=== PATIENT | female | born 1950 | race Caucasian/White ===

== ENCOUNTER → 2019-10-18 | Outpatient (CLI) | payer OTHER | END | disposition home or self-care (01) | LOC: LAB SRC 10:00 → LAB SHORT 10:00 | DX: E11.42 Type 2 diabetes mellitus with diabetic polyneuropathy (principal) | CPT/HCPCS: 82043 ==

== ENCOUNTER 2022-06-08 10:28 | Observation (INO) | payer OTHER ==
[~2022-06-08] VITALS: Ht 167.6 cm; Wt 108.5 kg
[2022-06-08 11:04] LABS: BASOPHILS ABSOLUTE AUTO 0.13 K/mm3 (0.00-0.23); BASOPHILS PERCENT AUTO 1 % (0-2); EOSINOPHILS ABSOLUTE AUTO 0.06 K/mm3 (0.00-0.68); EOSINOPHILS PERCENT AUTO 0 % (0-6); Hematocrit 45.5 % (33.0-51.0); Hemoglobin 14.8 g/dL (11.5-16.0); IMMATURE GRAN PERCENT AUTO 1 % (0-1); LYMPHOCYTES PERCENT AUTO 11 % (21-46); MONOCYTES ABSOLUTE AUTO 0.83 K/mm3 (0.16-1.47); MONOCYTES PERCENT AUTO 5 % (4-13); Mean Corpuscular HGB 29.6 pg (26.0-34.0); Mean Corpuscular HGB Conc 32.5 g/dL (31.5-36.5); Mean Corpuscular Volume 91 fL (80-100); Mean Platelet Volume 11.1 fL (9.1-12.4); NEUTROPHILS ABSOLUTE AUTO 14.16 K/mm3 (1.96-9.15); NEUTROPHILS PERCENT AUTO 82 % (41-73); Platelet Count 300 K/mm3 (150-400); RDW Coefficient Variation 13.9 % (11.7-14.2); RDW Standard Deviation 46.5 fL (35.1-46.3); White Blood Cell Count 17.18 K/mm3 (4.00-11.30)
[2022-06-08 11:21] LABS: Albumin, Blood 3.2 g/dL (3.4-5.0); Albumin/Globulin Ratio 0.7 (0.8-1.8); Bilirubin, Total 0.3 mg/dL (0.1-1.0); Bun/Creatinine Ratio 28.5 (12.0-20.0); Calcium, Blood 10.8 mg/dL (8.5-10.1); Creatinine, Blood 1.23 mg/dL (0.40-1.00); Globulin, Blood 4.6 g/dL (2.2-4.0); Potassium, Blood 4.3 mmol/L (3.5-5.5); Total Protein, Blood 7.8 g/dL (6.4-8.2)
[2022-06-08 16:28] LABS: Influenza A, PCR NEGATIVE (NEGATIVE); Influenza B, PCR NEGATIVE (NEGATIVE); Resp Syncytial Virus, PCR NEGATIVE (NEGATIVE); SARS-Cov-2 (COVID-19) PCR, MMC NEGATIVE (NEGATIVE)
[2022-06-08 17:14] LABS: CHOL/HDL RATIO 5.3; Cholesterol 159 mg/dL (50-200); HDL Cholesterol 30 mg/dL (>39); LDL/HDL RATIO 2.8; Low Density Lipoprotein Chol 83 mg/dL (0-110); Triglycerides 228 mg/dL (30-160); Very Low Density Lipoprot Chol 45 mg/dL (6-32)
--- NOTE | 2022-06-08 19:04 | NUR ---
SHIFT SUMMARY PT ARRIVED ON THE FLOOR FROM ED AT 1714. PT WAS ABLE TO WALK WITH FWW FROM [facility] TO [facility] BED. A&O X4. PT HAS HAD NO C/O OF CHEST PAIN SINCE COMING TO FLOOR. PT STATES THE NEED TO URINATE FREQUENTLY. PT IS ON TELE AND HAS BEEN RUNNING SLIGHTLY TACHY IN ED AND ON THE MEDICAL FLOOR. PT HAS BILATERAL WEAKNESS IN LOWER EXTREMITES. PT IS TO HAVE STRESS TEST TOMORROW AND NEEDS TO BE NPO 4 HOURS PRIOR. REPORT GIVEN TO ONCOMING NURSE.
[2022-06-09] MEDS ORDERED: AMLODIPINE BESYL5 MG PO (00:28)
[2022-06-09] MEDS ORDERED: METFORMIN HCL500 M2 PO (00:34)
[2022-06-09] MEDS ORDERED: METOPROLOL TART50 M9 PO (00:34)
[2022-06-09] MEDS ORDERED: BASAGLAR K100 UNIT/3 SC (00:35)
[2022-06-09 04:42] LABS: BASOPHILS ABSOLUTE AUTO 0.08 K/mm3 (0.00-0.23); BASOPHILS PERCENT AUTO 1 % (0-2); EOSINOPHILS ABSOLUTE AUTO 0.08 K/mm3 (0.00-0.68); EOSINOPHILS PERCENT AUTO 1 % (0-6); Hemoglobin 12.6 g/dL (11.5-16.0); IMMATURE GRAN PERCENT AUTO 1 % (0-1); LYMPHOCYTES ABSOLUTE AUTO 1.77 K/mm3 (0.84-5.20); LYMPHOCYTES PERCENT AUTO 12 % (21-46); MONOCYTES ABSOLUTE AUTO 1.51 K/mm3 (0.16-1.47); MONOCYTES PERCENT AUTO 10 % (4-13); Mean Corpuscular HGB 29.4 pg (26.0-34.0); Mean Corpuscular HGB Conc 32.3 g/dL (31.5-36.5); Mean Corpuscular Volume 91 fL (80-100); Mean Platelet Volume 11.4 fL (9.1-12.4); NEUTROPHILS ABSOLUTE AUTO 11.61 K/mm3 (1.96-9.15); NEUTROPHILS PERCENT AUTO 77 % (41-73); Platelet Count 195 K/mm3 (150-400); RDW Coefficient Variation 14.5 % (11.7-14.2); RDW Standard Deviation 48.1 fL (35.1-46.3); Red Blood Cell Count 4.28 M/mm3 (3.80-5.20); White Blood Cell Count 15.15 K/mm3 (4.00-11.30)
[2022-06-09 05:15] LABS: Bun/Creatinine Ratio 33.3 (12.0-20.0); Calcium, Blood 10.8 mg/dL (8.5-10.1); Creatinine, Blood 1.47 mg/dL (0.40-1.00); Potassium, Blood 4.5 mmol/L (3.5-5.5)
--- NOTE | 2022-06-09 06:13 | NUR ---
Rn summar: Patient is alert and oriented. She is a one assist to the BR with a walker and SBA. Pt has had no c/o chest pain or SOB. Tele shows SR rate 90's. Plan is for stress test this am. Call light in reach.
[2022-06-09] MEDS ORDERED: ALBU90OI INH (14:47)
[2022-06-09] MEDS ORDERED: TIZANIDINE HCL2 M1 PO (15:31)
--- NOTE | 2022-06-09 18:09 | NUR ---
SHIFT SUMMARY PT IS A&O X4 AND PLEASANT. PT COMPLETED FIRST HALF OF HER NUCLEAR STRESS TEST THIS AM AND WILL COMPLETE THE SECOND HALF TOMORROW AT 0730. PT IS A STANDBY ASSIST WITH FWW. PT APPEARS TO GASP FOR BREATH, PLACED PT ON 2L NC. PT STATED THAT SHE IS NOT A PEOPLE PERSON AND WAS BOTHERED BY TOO MANY PEOPLE COMING IN AND OUT OF HER ROOM TODAY. A NOTE WAS PLACED ON DOOR TO ALLOW HER TO REST FOR A COUPLE HOURS. PT C/O NAUSEA AROUND 1700 AND ZOFRAN WAS GIVEN WITH RELIEF OF SYMPTOMS.
[2022-06-10 04:35] LABS: BASOPHILS ABSOLUTE AUTO 0.06 K/mm3 (0.00-0.23); BASOPHILS PERCENT AUTO 1 % (0-2); EOSINOPHILS ABSOLUTE AUTO 0.17 K/mm3 (0.00-0.68); EOSINOPHILS PERCENT AUTO 2 % (0-6); Hematocrit 37.8 % (33.0-51.0); Hemoglobin 12.2 g/dL (11.5-16.0); IMMATURE GRAN ABSOLUTE AUTO 0.14 K/mm3 (0.00-0.10); IMMATURE GRAN PERCENT AUTO 1 % (0-1); LYMPHOCYTES ABSOLUTE AUTO 1.48 K/mm3 (0.84-5.20); LYMPHOCYTES PERCENT AUTO 13 % (21-46); MONOCYTES ABSOLUTE AUTO 1.31 K/mm3 (0.16-1.47); MONOCYTES PERCENT AUTO 11 % (4-13); Mean Corpuscular HGB 29.3 pg (26.0-34.0); Mean Corpuscular HGB Conc 32.3 g/dL (31.5-36.5); Mean Corpuscular Volume 91 fL (80-100); Mean Platelet Volume 11.1 fL (9.1-12.4); NEUTROPHILS ABSOLUTE AUTO 8.47 K/mm3 (1.96-9.15); NEUTROPHILS PERCENT AUTO 73 % (41-73); Platelet Count 181 K/mm3 (150-400); RDW Coefficient Variation 13.8 % (11.7-14.2); RDW Standard Deviation 45.9 fL (35.1-46.3); Red Blood Cell Count 4.16 M/mm3 (3.80-5.20); White Blood Cell Count 11.63 K/mm3 (4.00-11.30)
[2022-06-10 04:51] LABS: Bun/Creatinine Ratio 31.1 (12.0-20.0); Calcium, Blood 10.2 mg/dL (8.5-10.1); Creatinine, Blood 1.06 mg/dL (0.40-1.00); Potassium, Blood 4.3 mmol/L (3.5-5.5)
--- NOTE | 2022-06-10 05:36 | NUR ---
SHIFT SUMMARY PT ALERT AND ORIENTED X4. AFEBRILE. HR SR/ST 90-100'S. BP STABLE. ON RA SATS OVER 92%. NO C/O PAIN OR DISCOMFORT. NS INFUSING AT 75ML/HR. PT FREQUENTLY NEEDING TO URINATE. KNOWS WHEN SHE NEEDS TO URINATE BUT INCONTINENT AT TIMES. ABLE TO AMBULATE W/ X1 ASSIST AND FWW. NPO SINCE MIDNIGHT FOR 2ND PART OF STRESS TEST. IN BED WITH CALL ALARM AT SIDE, WILL CONTINUE TO MONITOR UNTIL REPORT GIVEN
--- NOTE | 2022-06-10 14:45 | NUR ---
PT DISCHARGED HOME, WITH DAUGHTER. PT WAS GIVEN DISCHARGE INSTRUCTIONS, MEDICATION LIST AND EDUCATION MATERIAL. PT STATED SHE DID NOT HAVE ANY QUESTIONS ABOUT INSTRUCTIONS. PT REMOVED ALL BELONGINGS FROM ROOM. PT WAS ABLE TO TRANSFER TO WHEELCHAIR AND WAS TAKEN OUT TO VEHICLE.
[2022-06-13 16:09] LABS: ALBUMIN 3.3 g/dL (2.9-4.4); ALPHA-1-GLOBULIN 0.2 g/dL (0.0-0.4); BETA GLOBULIN 1.2 g/dL (0.7-1.3); GAMMA GLOBULIN 0.9 g/dL (0.4-1.8); GLOBULIN, TOTAL 3.2 g/dL (2.2-3.9); M-SPIKE Not Observed g/dL (Not Observed); PROTEIN, TOTAL, SERUM 6.5 g/dL (6.0-8.5)
== END 2022-06-10 14:27 | disposition home or self-care (01) ==
LOC: ER 10:28 → MEDS 10:29
PROVIDERS: Internal Medicine; Physician Assistant; Student in an Organized Health Care Education/Training Program; ADMIT Internal Medicine
DX: R07.89 Other chest pain (principal); I25.10 Atherosclerotic heart disease of native coronary artery without angina pectoris; K74.60 Unspecified cirrhosis of liver; I31.3 Pericardial effusion (noninflammatory); E04.1 Nontoxic single thyroid nodule; E11.40 Type 2 diabetes mellitus with diabetic neuropathy, unspecified; E66.9 Obesity, unspecified; E78.5 Hyperlipidemia, unspecified; E11.22 Type 2 diabetes mellitus with diabetic chronic kidney disease; E83.52 Hypercalcemia; N17.9 Acute kidney failure, unspecified; I12.9 Hypertensive chronic kidney disease with stage 1 through stage 4 chronic kidney disease, or unspecified chronic kidney disease; N18.30 Chronic kidney disease, stage 3 unspecified; Z88.5 Allergy status to narcotic agent; Z87.891 Personal history of nicotine dependence; Z68.41 Body mass index [BMI] 40.0-44.9, adult; Z20.822 Contact with and (suspected) exposure to COVID-19
CPT/HCPCS: 0241U; 36415; 71045; 71275; 74174; 78452; 80048; 80053; 80061; 82947; 83036; 83970; 84100; 84165; 84484; 85025; 93005; 93010; 93017; 96361; 96372; 96374; 97162; 97530; 99285-25; A9270; A9500; G0378; J0706; J1650; J2405; J2785; J7030; Q9967

== ENCOUNTER 2022-06-17 11:53 | Emergency (ER) | payer OTHER ==
[~2022-06-17] VITALS: Ht 167.6 cm; Wt 108.9 kg
[~2022-06-17 11:53] MED LIST: ALBU90OI INH; AMLODIPINE BESYL5 MG PO; BASAGLAR K100 UNIT/3 SC; METFORMIN HCL500 M2 PO; METOPROLOL TART50 M9 PO; TIZANIDINE HCL2 M1 PO
[2022-06-17 12:41] LABS: BASOPHILS ABSOLUTE AUTO 0.08 K/mm3 (0.00-0.23); BASOPHILS PERCENT AUTO 1 % (0-2); EOSINOPHILS ABSOLUTE AUTO 0.37 K/mm3 (0.00-0.68); EOSINOPHILS PERCENT AUTO 3 % (0-6); Hematocrit 40.9 % (33.0-51.0); Hemoglobin 13.5 g/dL (11.5-16.0); IMMATURE GRAN PERCENT AUTO 1 % (0-1); LYMPHOCYTES ABSOLUTE AUTO 1.26 K/mm3 (0.84-5.20); LYMPHOCYTES PERCENT AUTO 11 % (21-46); MONOCYTES ABSOLUTE AUTO 1.25 K/mm3 (0.16-1.47); MONOCYTES PERCENT AUTO 11 % (4-13); Mean Corpuscular HGB 29.5 pg (26.0-34.0); Mean Corpuscular Volume 89 fL (80-100); Mean Platelet Volume 10.1 fL (9.1-12.4); NEUTROPHILS ABSOLUTE AUTO 8.87 K/mm3 (1.96-9.15); NEUTROPHILS PERCENT AUTO 74 % (41-73); Platelet Count 291 K/mm3 (150-400); RDW Coefficient Variation 13.7 % (11.7-14.2); Red Blood Cell Count 4.58 M/mm3 (3.80-5.20); White Blood Cell Count 11.93 K/mm3 (4.00-11.30)
[2022-06-17 13:01] LABS: Albumin, Blood 2.8 g/dL (3.4-5.0); Albumin/Globulin Ratio 0.6 (0.8-1.8); Bilirubin, Total 0.8 mg/dL (0.1-1.0); Bun/Creatinine Ratio 25.1 (12.0-20.0); Calcium, Blood 10.7 mg/dL (8.5-10.1); Creatinine, Blood 0.88 mg/dL (0.40-1.00); Globulin, Blood 4.7 g/dL (2.2-4.0); Potassium, Blood 4.4 mmol/L (3.5-5.5); Total Protein, Blood 7.5 g/dL (6.4-8.2)
== END 2022-06-17 15:09 | disposition home or self-care (01) ==
LOC: ER 11:53
PROVIDERS: Student in an Organized Health Care Education/Training Program
DX: R20.2 Paresthesia of skin (principal); R53.1 Weakness; E11.9 Type 2 diabetes mellitus without complications; Z88.5 Allergy status to narcotic agent; Z79.4 Long term (current) use of insulin; Z79.899 Other long term (current) drug therapy
CPT/HCPCS: 70450; 71046; 80053; 85025; 93005; 93010

== ENCOUNTER 2023-03-24 06:06 | Day surgery (SDC) | payer OTHER ==
[~2023-03-24] VITALS: Ht 167.6 cm; Wt 112.6 kg
[~2023-03-24 06:06] MED LIST changes: +ASPI81CH PO; +INSULANPEN SC
[2023-03-24 07:47] VITALS: BP 166/84
--- NOTE | 2023-03-24 08:12 | NUR ---
03/24/23 [address] MARIA; SEE ANESTHESIA RECORDS.
--- NOTE | 2023-03-24 08:20 | NUR ---
Patient States Post-Procedure ride home has been arranged with daughter, Che, who is at bedside with patient.
[2023-03-24 08:47] VITALS: BP 112/77
[2023-03-24 09:04] VITALS: BP 126/88
--- NOTE | 2023-03-24 09:17 | NUR ---
DISCHARGE SUMMARY PT A&OX4, VSS/RA, RYAN PO, DENIES PAIN, DAUGHTER/JAILOR BEDSIDE-ASSISTED WITH DRESSING, IV DC'D. DC INS PROVIDED. PT AND DAUGHTER REP UNDERSTANDING THOSE INSTRUCTIONS. LEFT VIA OWN WC WITH ALL PERSONAL POSSESSIONS TO GO HOME WITH DAUGHTER/JAILOR, TAKEN OUT BY RN.
== END 2023-03-24 23:06 | disposition home or self-care (01) ==
LOC: ORSCMMR 06:06 → ORD 08:00 → ORSCMMR 08:00
PROVIDERS: Student in an Organized Health Care Education/Training Program
PROC: 0DB68ZX Excision of Stomach, Via Natural or Artificial Opening Endoscopic, Diagnostic (ICD-10-PCS; principal; 2023-03-24 08:00)
DX: K74.60 Unspecified cirrhosis of liver (principal); K29.40 Chronic atrophic gastritis without bleeding; K31.819 Angiodysplasia of stomach and duodenum without bleeding; E03.9 Hypothyroidism, unspecified; I10 Essential (primary) hypertension; E78.5 Hyperlipidemia, unspecified; E11.9 Type 2 diabetes mellitus without complications; K75.81 Nonalcoholic steatohepatitis (NASH); J44.9 Chronic obstructive pulmonary disease, unspecified; Z87.891 Personal history of nicotine dependence; E66.9 Obesity, unspecified; Z68.39 Body mass index [BMI] 39.0-39.9, adult; Z79.84 Long term (current) use of oral hypoglycemic drugs; Z79.4 Long term (current) use of insulin; Z79.899 Other long term (current) drug therapy
CPT/HCPCS: 82947; 88305; 88342; J2704; J7120

== ENCOUNTER 2023-07-18 11:54 | Day surgery (SDC) | payer OTHER ==
[~2023-07-18] VITALS: Ht 167.6 cm; Wt 112.7 kg
[2023-07-18] MEDS ORDERED: ASPI325 PO (12:36)
[2023-07-18] MEDS ORDERED: AMLODIPINE BESY10 MG PO (12:36)
[2023-07-18] MEDS ORDERED: ROSUVASTATIN CAL5 MG PO (12:37)
[2023-07-18] MEDS ORDERED: ATENOLOL25 MG PO (12:37)
[2023-07-18] MEDS ORDERED: SEMGLEE (Y100 UNIT/2 SQ (12:37)
[2023-07-18 14:59] VITALS: BP 130/79
== END 2023-07-18 15:33 | disposition home or self-care (01) ==
LOC: ORSCSDS 11:54
PROVIDERS: Otolaryngology
PROC: 0CB3XZX Excision of Soft Palate, External Approach, Diagnostic (ICD-10-PCS; principal; 2023-07-18 13:00)
DX: D10.39 Benign neoplasm of other parts of mouth (principal); K13.79 Other lesions of oral mucosa; J39.2 Other diseases of pharynx; I10 Essential (primary) hypertension; E11.9 Type 2 diabetes mellitus without complications; K21.9 Gastro-esophageal reflux disease without esophagitis; E66.01 Morbid (severe) obesity due to excess calories; Z68.41 Body mass index [BMI] 40.0-44.9, adult; I50.9 Heart failure, unspecified; Z79.4 Long term (current) use of insulin; Z79.899 Other long term (current) drug therapy
CPT/HCPCS: 82947; 88305; 88312; J0330; J1100; J2250; J2405; J3010; J7120

== ENCOUNTER 2024-06-07 07:41 | Day surgery (SDC) | payer OTHER ==
[~2024-06-07] VITALS: Ht 195.6 cm; Wt 116.0 kg
[2024-06-07] VITALS (19 sets, daily range): BP systolic 128–156; BP diastolic 73–89
[~2024-06-07 07:41] MED LIST changes: +AMLODIPINE BESY10 MG PO; +ASPI325 PO; +ATENOLOL25 MG PO; +ROSUVASTATIN CAL5 MG PO; +SEMGLEE (Y100 UNIT/2 SQ
[2024-06-07] MEDS ORDERED: CeFAZolin Sodium 2,000 MG in NS 100 ML IV SCH (08:50)
[2024-06-07] MEDS ORDERED: Lactated Ringer's 1,000 ML IV SCH (08:50)
--- NOTE | 2024-06-07 09:17 | NUR ---
PT inTO Day Surgery PER W/C. ABLE TO STAND FOR WT. PT ABLE TO SELF TRANSFER TO BED FROM W/C. Patient confirms NPO status and agrees with scheduled surgery. Pre-Op teaching done. Pt verbalizes understanding. History, Chart, Medications and Allergies reviewed before start of procedure.
[2024-06-07] MEDS ORDERED: THERA-D2000 UNIT PO (09:22)
[2024-06-07] MEDS ORDERED: Hair, Skin & N1 EACH (09:22)
[2024-06-07] MEDS ORDERED: LACTATED RINGERS IV SCH (10:10)
[2024-06-07] MEDS ORDERED: DEXTROSE IV SCH (10:10)
[2024-06-07] MEDS ORDERED: propofoL 80 ML IV ONE (10:13)
[2024-06-07] MEDS ORDERED: Dextrose 5% 250 ML IV ONE (10:20)
--- NOTE | 2024-06-07 10:38 | NUR ---
PT S/P 3 UNSUCCESSFUL PERIPHERAL ATTEMPTS. ANA RN CALLED TO PLACE POWERGLIDE
--- NOTE | 2024-06-07 10:40 | NUR ---
PT IS MOSTLY NON AMBULATORY AT HOME D/T ARTHRITIC RIGHT KNEE. PT STATES SHE GETS AROUND USING A W/C AND "WALKER W/A SEAT". PT ABLE TO STAND FOR SCALE BUT SOB W/EXCERTION. PT ALSO INCONTINENT OF BLADDER, WEARING ATTENDS AND STATES "THEY ARE FULL", PT GIVEN NEW ATTENDS.
[2024-06-07] MEDS ORDERED: Methylene Blue 1% 100 MG/10 ML VIAL ONE (10:45)
[2024-06-07] MEDS ORDERED: Bupivacaine 0.5% HCl 5 MG/ML 30MLVIAL ONE (10:46)
--- NOTE | 2024-06-07 11:02 | NUR ---
PT REPORTS TO ANESTHESIOLOGIST 1 LOOSE TOOTH ON LOWER TEETH, AND A BROKEN TOOTH ON RIGHT LOWER TEETH.
[2024-06-07] MEDS ORDERED: propofoL 100 ML IV ONE (11:08)
[2024-06-07] MEDS ORDERED: FentaNYL Citrate 50 MCG/ML 2 ML Injection ONE ×2 (11:10→14:28)
[2024-06-07] MEDS ORDERED: Rocuronium Bromide 10 MG/ML 5ML Injection IV ONE (11:16)
[2024-06-07] MEDS ORDERED: Midazolam HCl 1MG / ML 2ML Vial ONE (11:16)
[2024-06-07] MEDS ORDERED: ePHEDrine Sulfate 50 MG/ML 1ML Injection ONE (11:36)
[2024-06-07] MEDS ORDERED: Ketorolac Tromethamine 30mg Vial ONE (11:37)
[2024-06-07] MEDS ORDERED: Ondansetron HCl 2 MG / ML 2ML Vial ONE (11:37)
[2024-06-07] MEDS ORDERED: Dexamethasone Sod Phos 10 MG/ML 1ML VIAL ONE (11:37)
[2024-06-07] MEDS ORDERED: Sugammadex Sodium 200 MG/2ML SDV (100 MG/ML) ONE (11:38)
[2024-06-07] MEDS ORDERED: Dextrose 10% 250 ML IV SCH (11:55)
[2024-06-07] MEDS ORDERED: propofoL 40 ML IV ONE (12:22)
[2024-06-07] MEDS ORDERED: Ondansetron HCl 2 MG / ML 2ML Vial IV PRN (13:35)
[2024-06-07] MEDS ORDERED: FentaNYL Citrate 50 MCG/ML 2 ML Injection IV PRN (13:35)
[2024-06-07] MEDS ORDERED: HYDROcodone 5-APAP 325 TAB PO PRN (13:35)
[2024-06-07] MEDS ORDERED: Ondansetron 4 MG TAB PO PRN (13:35)
[2024-06-07] MEDS ORDERED: Albuterol HFA200 ACT/6.7 GM INH INH PRN (13:40)
[2024-06-07] MEDS ORDERED: ATEN25 PO (15:16)
[2024-06-07] MEDS ORDERED: MIRALAX17 GM PO (15:16)
[2024-06-07] MEDS ORDERED: TIZANIDINE HCL2 M1 PO (15:18)
--- NOTE | 2024-06-07 15:40 | NUR ---
POST OP S/P L MASTECTOMY. GAUZE CDI + BREAST BINDER IN PLACE. PRECIOUS DRAIN TO LEFT LATERAL WITH SANGUINOUS DRAINAGE PRESENT. PT MEDICATED FOR PAIN IN PACU PRIOR TO ARRIVAL. ON 4L O2 VIA NC AND PLANNING TO WEAN TOLERATED. POST OP VS IN PROGRESS. IVF INFUSING PER ORDERS. SLOWLY OFFERING PO. ATTENDS CHANGED FOR URINARY INCONTINENCE. ORIENTED TO ROOM AND CALL LIGHT.
[2024-06-07] MEDS ORDERED: MetFORMIN HCl 500 mg PO SCH (17:00)
[2024-06-07] MEDS ORDERED: Insulin Glargine-Yfgn 100 Unit/mL 3 ML SYR SC SCH (21:00)
[2024-06-07] MEDS ORDERED: Metoprolol Tartrate 50 MG Tab PO SCH (21:00)
[2024-06-08 03:41] VITALS: BP 132/56
--- NOTE | 2024-06-08 05:56 | NUR ---
SHIFT SUMMARY PT A&O X4, VERY PLEASANT AND COOPERATIVE WITH CARE. VSS; SBP 120 - 140'S, HR IN 70'S, AFEBRILE, PT TITRATED TO RA WITH SPO2 91 - 95%. PT WITH MILD, DRY OCCASSIONAL COUGH. DEEP BREATHING AND COUGHING ENCOURAGED POST OP. NO AACUTE EVENTS OVERNIGHT. BINDER IN PLACE WITH STERI STRIPS AND GAUZE TO INCISION SITE; NO DRAINAGE NOTED. PRECIOUS DRAIN IN PLACE TO L SIDE WITH 60 MLS OF SANGUINEOUS OUTPUT. PT EDUCATED ON HOW TO CARE FOR DRAIN THIS SHIFT, RECEPTIVE TO EDUCATION. PT INCONTINENT OF URINE; ATTENDS CHANGED PRN AND PT VOIDING WELL. NO BM THIS SHIFT. PT WITH REDNESS/RAISED AREA AROUND COCCYX AND BUTTOCKS; SOME AREAS BLANCHABLE OTHER AREAS APPEAR OLD HEALING SCAR. PT STATES "THIS IS NEW AND A REACTION TO HER HOME ATTENDS" THAT SHE RECENTLY PURCHASED AND SWITCHED BRANDS. REPOSITIONING TO RELIEVE PRESSURE TO AREA. NO EVENTS OF N/V. PT TOLERATING PO INTAKE. PT WITH MINIMAL PAIN; MEDICATION X1 PER EMAR WITH ADEQUATE RELIEF. ALSO REST AND REPOSITIONING TO ASSIST WITH PAIN ALLEVIATION. NOC CBG 264; COVERAGE PER EMAR. PT RESTED ON AND OFF T/O NIGHT. ABLE TO MAKE NEEDS KNOWN, CALL LIGHT IN REACH. WILL UPDATE ONCOMING RN.
[2024-06-08 07:25] VITALS: BP 137/58
[2024-06-08] MEDS ORDERED: Rosuvastatin Calcium 10 MG Tab PO SCH (09:00)
[2024-06-08] MEDS ORDERED: AmLODIPine Besylate 5 MG Tab PO SCH (09:00)
[2024-06-08] MEDS ORDERED: Norco 5-325 Ta1 EACH PO (12:00)
[2024-06-08 12:04] VITALS: BP 136/74
--- NOTE | 2024-06-08 12:15 | NUR ---
discharged vss. pt and daughter educated on emptying carol drain. reviewed dc instructions w/pt and daughter; verbalized understanding. pt left unit in personal wc w/possessions and dc instructions in hand, accompanied by spouse.
== END 2024-06-08 12:15 | disposition home or self-care (01) ==
LOC: NM 07:41 → ORSCMMR 07:41 → NM 08:30 → SURS 15:08 → NM 06-08 12:15
PROVIDERS: Surgery
PROC: 0HBU0ZX Excision of Left Breast, Open Approach, Diagnostic (ICD-10-PCS; principal; 2024-06-07 10:15)
PROC: 0HBU0ZZ Excision of Left Breast, Open Approach (ICD-10-PCS; principal; 2024-06-07 10:15)
DX: C50.812 Malignant neoplasm of overlapping sites of left female breast (principal); C50.919 Malignant neoplasm of unspecified site of unspecified female breast; Z17.0 Estrogen receptor positive status [ER+]
CPT/HCPCS: 38792; 82947; 94760; A9270; A9520; J0690; J1100; J1815; J1885; J2250; J2405; J2704; J3010; J7060; J7120; Q9968

== ENCOUNTER 2024-08-14 10:14 | Day surgery (SDC) | payer OTHER ==
[~2024-08-14] VITALS: Ht 167.6 cm; Wt 112.0 kg
[~2024-08-14 10:14] MED LIST changes: +ATEN25 PO; +Hair, Skin & N1 EACH; +Lactated Ringer's 1,000 ML IV ONE; +MIRALAX17 GM PO; +Norco 5-325 Ta1 EACH PO; +THERA-D2000 UNIT PO
[2024-08-14] MEDS ORDERED: ANASTROZOLE1 M7 (11:49)
[2024-08-14] MEDS ORDERED: AMLO10 (11:50)
[2024-08-14] MEDS ORDERED: propofoL 50 ML IV ONE (12:32)
[2024-08-14] MEDS ORDERED: Lidocaine HCl 1% 30 ML SDV ONE (12:33)
[2024-08-14] MEDS ORDERED: Lactated Ringer's 1,000 ML IV ONE (12:40)
[2024-08-14 13:43] VITALS: BP 101/76
== END 2024-08-14 14:05 | disposition home or self-care (01) ==
LOC: ORSCSDS 10:14
PROVIDERS: Specialist
PROC: 0DBM8ZX Excision of Descending Colon, Via Natural or Artificial Opening Endoscopic, Diagnostic (ICD-10-PCS; principal; 2024-08-14 12:15)
PROC: 0DBK8ZX Excision of Ascending Colon, Via Natural or Artificial Opening Endoscopic, Diagnostic (ICD-10-PCS; principal; 2024-08-14 12:15)
PROC: 0DBL8ZX Excision of Transverse Colon, Via Natural or Artificial Opening Endoscopic, Diagnostic (ICD-10-PCS; principal; 2024-08-14 12:15)
DX: Z12.11 Encounter for screening for malignant neoplasm of colon (principal); Z86.0100 Personal history of colon polyps, unspecified; D12.2 Benign neoplasm of ascending colon; D12.3 Benign neoplasm of transverse colon; D12.4 Benign neoplasm of descending colon; K64.8 Other hemorrhoids; K57.30 Diverticulosis of large intestine without perforation or abscess without bleeding; K75.81 Nonalcoholic steatohepatitis (NASH); K74.69 Other cirrhosis of liver; E11.9 Type 2 diabetes mellitus without complications; I10 Essential (primary) hypertension; E78.5 Hyperlipidemia, unspecified; J44.9 Chronic obstructive pulmonary disease, unspecified; G47.33 Obstructive sleep apnea (adult) (pediatric); E66.01 Morbid (severe) obesity due to excess calories; Z68.41 Body mass index [BMI] 40.0-44.9, adult; I69.359 Hemiplegia and hemiparesis following cerebral infarction affecting unspecified side; K21.9 Gastro-esophageal reflux disease without esophagitis; Z79.4 Long term (current) use of insulin; Z79.899 Other long term (current) drug therapy; Z79.82 Long term (current) use of aspirin
CPT/HCPCS: 82947; 88305; J2704; J7120

== ENCOUNTER → 2024-12-23 | Outpatient (CLI) | payer OTHER ==
[~2024-12-23] MED LIST changes: +AMLO10; +ANASTROZOLE1 M7; -Lactated Ringer's 1,000 ML IV ONE
[2024-12-23 20:32] LABS: Creatinine Urine 35.6 mg/dL (27.00-270.00)
== END ==
LOC: LAB SHORT 09:00 → LAB 09:00
PROVIDERS: Internal Medicine Endocrinology, Diabetes & Metabolism
DX: E21.3 Hyperparathyroidism, unspecified (principal)
CPT/HCPCS: 82340; 82570

== ENCOUNTER 2025-07-15 01:12 | Day surgery (SDC) | payer OTHER ==
[2025-07-15 11:15] VITALS: BP 128/62
--- NOTE | 2025-07-15 12:12 | NUR ---
PT ARRIVES TO UNIT, PIV PLACED, LABS DRAWN AND SENT TO LAB. MEDICATION REQUESTED FROM PHARMACY. PHARMACY NOTIFIED UNIT MEDICATOIN NOT IN STOCK. PT RESCHEDULED FOR LATER IN THE WEEK. PIV REMOVED PRIOR TO DISHCARGE. PT STATES ON DEPARTURE "I HOPE I HAVE INSURANCE ON MONDAY." MARIANNE IN [facility] OFFICE NOTIFIED OF COMMENT.
[2025-07-15 12:21] LABS: BASOPHILS ABSOLUTE AUTO 0.11 K/mm3 (0.00-0.23); BASOPHILS PERCENT AUTO 1 % (0-2); EOSINOPHILS ABSOLUTE AUTO 0.21 K/mm3 (0.00-0.68); EOSINOPHILS PERCENT AUTO 1 % (0-6); Hematocrit 36.2 % (33.0-51.0); Hemoglobin 11.4 g/dL (11.5-16.0); IMMATURE GRAN ABSOLUTE AUTO 0.15 K/mm3 (0.00-0.10); IMMATURE GRAN PERCENT AUTO 1 % (0-1); LYMPHOCYTES ABSOLUTE AUTO 1.05 K/mm3 (0.84-5.20); LYMPHOCYTES PERCENT AUTO 5 % (21-46); MONOCYTES ABSOLUTE AUTO 1.13 K/mm3 (0.16-1.47); MONOCYTES PERCENT AUTO 6 % (4-13); Mean Corpuscular HGB Conc 31.5 g/dL (31.5-36.5); Mean Corpuscular Volume 79 fL (80-100); NEUTROPHILS ABSOLUTE AUTO 17.42 K/mm3 (1.96-9.15); NEUTROPHILS PERCENT AUTO 87 % (41-73); NRBC ABSOLUTE 0.00 K/mm3 (0.00-0.02); NRBC Auto 0.0 /100 WBC (0.0-0.2); Platelet Count 283 K/mm3 (150-400); RDW Coefficient Variation 17.5 % (11.7-14.2); RDW Standard Deviation 50.4 fL (35.1-46.3)
[2025-07-15 12:45] LABS: Alanine Aminotransfer (ALT/SGP 44.0 U/L (12-78); Albumin, Blood 2.9 g/dL (3.4-5.0); Albumin/Globulin Ratio 0.6 (0.8-1.8); Anion Gap 12.0 mmol/L (3-11); Aspartate Aminotrans (AST/SGOT 55.0 U/L (12-37); Bilirubin, Total 0.4 mg/dL (0.1-1.0); Blood Urea Nitrogen 23.0 mg/dL (8-24); CO2, Blood 21.0 mmol/L (21-32); Calcium, Blood 10.7 mg/dL (8.5-10.1); Chloride, Blood 106.0 mmol/L (98-108); Creatinine, Blood 1.02 mg/dL (0.40-1.00); Globulin, Blood 4.5 g/dL (2.2-4.0); Glucose, Blood 197.0 mg/dL (70-99); Potassium, Blood 4.0 mmol/L (3.5-5.5); Sodium, Blood 135.0 mmol/L (136-145); Total Protein, Blood 7.4 g/dL (6.4-8.2)
== END 2025-07-15 12:00 | disposition home or self-care (01) ==
LOC: ATC 01:12
PROVIDERS: Internal Medicine Hematology & Oncology
DX: M81.0 Age-related osteoporosis without current pathological fracture (principal); E11.9 Type 2 diabetes mellitus without complications; Z79.84 Long term (current) use of oral hypoglycemic drugs; Z79.899 Other long term (current) drug therapy
CPT/HCPCS: 80053; 85025

== ENCOUNTER 2025-07-18 01:25 | Day surgery (SDC) | payer OTHER ==
[2025-07-18 11:24] VITALS: BP 133/69
== END 2025-07-18 11:43 | disposition home or self-care (01) ==
LOC: ATC 01:25
DX: M81.0 Age-related osteoporosis without current pathological fracture (principal); E21.3 Hyperparathyroidism, unspecified; E11.29 Type 2 diabetes mellitus with other diabetic kidney complication; Z79.84 Long term (current) use of oral hypoglycemic drugs; Z79.899 Other long term (current) drug therapy
CPT/HCPCS: 96365; J3489

== ENCOUNTER → 2025-10-03 | Outpatient (CLI) | payer OTHER ==
[2025-10-03 11:34] LABS: Creatinine, Urine Random 46.9 mg/dL (27.00-270.00)
[2025-10-03 11:37] LABS: Microalbumin, Random Urine 705.0 mg/L (0.000-20.000)
== END ==
LOC: LAB SHORT 06:00 → LAB 06:00
PROVIDERS: Nurse Practitioner Family
DX: E11.22 Type 2 diabetes mellitus with diabetic chronic kidney disease (principal); I12.9 Hypertensive chronic kidney disease with stage 1 through stage 4 chronic kidney disease, or unspecified chronic kidney disease; N18.30 Chronic kidney disease, stage 3 unspecified; E83.52 Hypercalcemia
CPT/HCPCS: 82043; 82310; 82570